=== PATIENT | female | born 1975 | race Caucasian/White ===

== ENCOUNTER 2016-12-20 19:42 | Emergency (ER) | payer BC ==
[~2016-12-20] VITALS: Ht 157.5 cm; Wt 75.8 kg
== END 2016-12-20 22:50 | disposition home or self-care (01) ==
LOC: ED 19:42
DX: T67.5XXA Heat exhaustion, unspecified, initial encounter (principal); Z98.51 Tubal ligation status; Z79.899 Other long term (current) drug therapy
CPT/HCPCS: 80053; 81001; 85025; 96374; 96375; 99283; J2405; J7030; J7040